=== PATIENT | male | born 1970 | race Two or more races ===

== ENCOUNTER 2019-02-22 21:10 | Emergency (ER) | payer OTHER ==
[~2019-02-22] VITALS: Ht 162.6 cm; Wt 62.6 kg
[2019-02-22 21:18] VITALS: BP 136/78
--- NOTE | 2019-02-22 23:08 | NUR ---
PAGED DR. ZAPATA FOR CONSULT
== END 2019-02-23 00:01 | disposition home or self-care (01) ==
LOC: ER 21:13
DX: S02.2XXA Fracture of nasal bones, initial encounter for closed fracture (principal); S00.33XA Contusion of nose, initial encounter; S80.211A Abrasion, right knee, initial encounter; S00.81XA Abrasion of other part of head, initial encounter; K04.6 Periapical abscess with sinus; M86.9 Osteomyelitis, unspecified; M50.320 Other cervical disc degeneration, mid-cervical region, unspecified level; M79.622 Pain in left upper arm; M79.621 Pain in right upper arm; J00 Acute nasopharyngitis [common cold]; W50.1XXA Accidental kick by another person, initial encounter; Y93.66 Activity, soccer; Y92.322 Soccer field as the place of occurrence of the external cause; Y99.8 Other external cause status
CPT/HCPCS: 70450-TC; 70486-TC; 72125-TC